=== PATIENT | female | born 1955 | race Hispanic/Latino ===

== ENCOUNTER 2018-11-19 08:56 | Day surgery (SDC) | payer OTHER ==
--- OUTSIDE RECORDS SUMMARY | 2018-11-19 09:20 | XMS REPORT ---
:1955 Author Organization [facility] Address [address] [place] [address] Dr. Moser [address] [place] [id number] Care Team Providers Name Role Phone UNKNOWN, REFFERING Primary Care Provider Unavailable Problems This patient has no known problems. Allergies, Adverse Reactions, Alerts This patient has no known allergies or adverse reactions. Medications This patient has no known medications. Encounters Start End Encounter Admission Attending Care Care Encounter Date/Time Date/Time Type Type Clinicians Facility Department ID 2017-04-06 2017-04-06 Outpatient C [facility] MED [id number] 11:22:00 11:22:00
[2018-11-19] MEDS: PHENYLEPHRINE 10% OPTH 5ML ONE ×3 (09:23→09:33)
[2018-11-19] MEDS: CYCLOPENTOLATE 1% OPTH 2 ML ONE ×3 (09:23→09:33)
[2018-11-19] MEDS ORDERED: LIDOCAINE 2% MPF 5 ML VIAL ONE (09:23)
[2018-11-19] MEDS ORDERED: BUPIVACAINE 0.25% PF 10 ML VIAL ONE (09:23)
[2018-11-19] MEDS ORDERED: LIDOCAINE HCL/PF 3.5% OPTH GEL ONE ×2 (09:23→09:31)
[2018-11-19] MEDS ORDERED: NA CHLORIDE 0.9% 500 ML ONE (09:23)
[2018-11-19] MEDS ORDERED: TETRACAINE HCL 0.5% 2ML OPTH ONE (09:23)
[2018-11-19] MEDS ORDERED: EPINEPHRINE/PF 1 MG/ML AMP ONE (09:25)
[2018-11-19] MEDS ORDERED: NS 0.9% VIAL 10 ML ONE (09:25)
[2018-11-19] MEDS ORDERED: BALANCED SALT IRRIG PLAIN 500 ML BTL IRR ONE (09:25)
[2018-11-19] MEDS ORDERED: LIDOCAINE 1% MPF 2 ML AMPULE ONE (09:26)
[2018-11-19] MEDS ORDERED: MOXIFLOXACIN HCL 10 DROPS/ML **OR USE OPTH ONE (09:26)
[2018-11-19] MEDS ORDERED: DUOVISC 1 KIT OPTH ONE (09:26)
[2018-11-19] MEDS ORDERED: MIDAZOLAM HCL 2 MG/2 ML INJ ONE (10:43)
[2018-11-19] MEDS ORDERED: FENTANYL CITR 100 MCG/2 ML ONE (10:43)
--- NOTE | 2018-11-19 11:27 | P.BOP ---
Preoperative diagnosis: Nuclear sclerotic cataract OS Postoperative diagnosis: Same Primary procedure: Phacoemulsification with IOL OS Estimated blood loss: None Anesthesia: Local (Topical with anesthesia for cataract surgery) Complications: None Implants: SA60WF +25.5 Transferred to: Other (Day surgery) Condition: Good
--- NOTE | 2018-11-19 20:48 | OP ---
Date of Procedure: 11/19/2018 Surgeon: Joanna Groves MD Anesthesiologist: Erinn Goss CRNA, and Qasim Orourke M.D. Preoperative Diagnosis: Nuclear sclerotic cataract, OS (left eye). Operation Performed: Phacoemulsification with intraocular lens implant, left eye. Anesthesia: Per cataract surgery. Complications: None. Description Of Procedure: In the operating room the patient was prepped and draped in the usual ster ile fashion for ophthalmic surgery. A lid speculum was placed in the left eye. Two paracentesis sit es were made superiorly and inferiorly in the limbal cornea. Viscoat was placed in the anterior chaka faisal and a crescent blade was used to make a corneal groove and tunnel, and a keratome was used to ent er the anterior chamber. Provisc was placed in the anterior chamber and a 360 degree capsulotomy was performed with a cystitome. The lens was hydrodissected with BSS and rotated freely. The lens was removed with a stop and chop technique. A 10.86 phaco CDE was used to remove the lens. Residual cor daendre was removed with the irrigation and aspiration. Provisc was placed in the capsular bag. A SA60W F +25.5 lens was placed in the capsular bag without complications. Irrigation and aspiration was use d to remove residual viscoelastic. The paracentesis sites were hydrated with BSS. The wound and par acentesis sites were inspected and found to be watertight. Vigamox 0.07 cc was placed intracamerally at the end of the procedure. The eye was irrigated with balanced salt solution. The eye was patche d with a soft cotton patch and Armstrong metal shield. The patient was returned to day surgery in good condition. Comments: Akten was placed in the eye in Day Surgery and irrigated out of the eye with BSS in the OR . Preservative-free 1% lidocaine was placed in the anterior chamber prior to Viscoat. Discharge Instructions: Ms. Murphy is discharged to home in good condition and is to follow up with Dr. Groves in the morning. JONAS/GISELLE Voice ID: [id number] Report ID: [id number]
== END 2018-11-19 11:50 | disposition home or self-care (01) ==
LOC: OR 08:56
PROVIDERS: ATTEND Ophthalmology Retina Specialist
PROC: 08RK3JZ Replacement of Left Lens with Synthetic Substitute, Percutaneous Approach (ICD-10-PCS; principal; 2018-11-19 10:00)
DX: H25.12 Age-related nuclear cataract, left eye (principal)
CPT/HCPCS: J0171; J2001; J2250; J3010

== ENCOUNTER 2019-01-28 09:45 | Day surgery (SDC) | payer OTHER ==
--- OUTSIDE RECORDS SUMMARY | 2019-01-28 09:48 | XMS REPORT ---
:1955 Author Organization [facility] Address [address] [place] [address] Dr. Moser [address] [place] [id number] Care Team Providers Name Role Phone UNKNOWN, REFFERING Primary Care Provider Unavailable Problems This patient has no known problems. Allergies, Adverse Reactions, Alerts This patient has no known allergies or adverse reactions. Medications This patient has no known medications. Encounters Start End Encounter Admission Attending Care Care Encounter Date/Time Date/Time Type Type Clinicians Facility Department ID 2017-04-06 2017-04-06 Outpatient C [facility] MED [id number] 11:22:00 11:22:00
[2019-01-28] MEDS: CYCLOPENTOLATE 1% OPTH 2 ML ONE ×3 (10:15→10:25)
[2019-01-28] MEDS: PHENYLEPHRINE 10% OPTH 5ML ONE ×3 (10:15→10:25)
[2019-01-28] MEDS ORDERED: BUPIVACAINE 0.25% PF 10 ML VIAL ONE (10:16)
[2019-01-28] MEDS ORDERED: LIDOCAINE HCL/PF 3.5% OPTH GEL ONE (10:16)
[2019-01-28] MEDS ORDERED: TETRACAINE HCL 0.5% 4ML OPTH ONE (10:16)
[2019-01-28] MEDS ORDERED: LIDOCAINE 2% MPF 5 ML VIAL ONE (10:16)
[2019-01-28] MEDS ORDERED: NA CHLORIDE 0.9% 500 ML ONE (10:16)
[2019-01-28] MEDS ORDERED: EPINEPHRINE/PF 1 MG/ML AMP ONE (10:45)
[2019-01-28] MEDS ORDERED: NS 0.9% VIAL 10 ML ONE (10:45)
[2019-01-28] MEDS ORDERED: LIDOCAINE 1% MPF 2 ML AMPULE ONE (10:45)
[2019-01-28] MEDS ORDERED: DUOVISC 1 KIT OPTH ONE (10:45)
[2019-01-28] MEDS ORDERED: BALANCED SALT IRRIG PLAIN 500 ML BTL IRR ONE (10:45)
[2019-01-28] MEDS ORDERED: MIDAZOLAM HCL 2 MG/2 ML INJ ONE (11:00)
[2019-01-28] MEDS ORDERED: FENTANYL CITR 100 MCG/2 ML ONE (11:00)
[2019-01-28] MEDS: MOXIFLOXACIN HCL 10 DROPS/ML **OR USE OPTH ONE ×2 (11:39→11:51)
--- NOTE | 2019-01-28 11:58 | P.BOP ---
Preoperative diagnosis: Nuclear sclerotic cataract OD Postoperative diagnosis: Same Primary procedure: Phacoemulsification with IOL OD Estimated blood loss: None Anesthesia: Local (Topical with anesthesia for cataract surgery) Complications: None Implants: SA60WF +26.5 Transferred to: Other (Day surgery) Condition: Good
--- NOTE | 2019-01-28 23:16 | OP ---
Date of Procedure: 01/28/2019 Surgeon: Joanna Groves MD Anesthesiologist: 1. Trudy Dunn CRNA. 2. Chel Pollock CRNA. 3. Antony Taylor Md. Preoperative Diagnosis: Nuclear sclerotic cataract, OD (right eye). Operation Performed: Phacoemulsification with intraocular lens implant, right eye. Anesthesia: Per cataract surgery. Complications: None. Description Of Procedure: In the operating room the patient was prepped and draped in the usual ster ile fashion for ophthalmic surgery. A lid speculum was placed in the right eye. Two paracentesis si ulysses were made superiorly and inferiorly in the limbal cornea. Viscoat was placed in the anterior jocelyn mber and a crescent blade was used to make a corneal groove and tunnel, and a keratome was used to en ter the anterior chamber. Provisc was placed in the anterior chamber and a 360 degree capsulotomy wa s performed with a cystitome. The lens was hydrodissected with BSS and rotated freely. The lens was removed with a stop and chop technique. 7.35 phaco CDE was used to remove the lens. Residual gerard x was removed with the irrigation and aspiration. Provisc was placed in the capsular bag. A SA60WF + 26.5 lens was placed in the capsular bag without complications. Irrigation and aspiration was used to remove residual viscoelastic. The paracentesis sites were hydrated with BSS. The wound and para centesis sites were inspected and found to be watertight. Vigamox 0.07 cc was placed intracamerally at the end of the procedure. The eye was irrigated with balanced salt solution. The eye was patched with a soft cotton patch and Armstrong metal shield. The patient was returned to day surgery in good condition. Comments: Akten was placed in the eye in Day Surgery and irrigated out of the eye with BSS in the OR . Preservative-free 1% lidocaine was placed in the anterior chamber prior to Viscoat. Discharge Instructions: Ms. Murphy is discharged to home in good condition and is to follow up with Dr. Groves in the morning. JONAS/MODL Voice ID: [id number] Report ID: [id number]
== END 2019-01-28 12:23 | disposition home or self-care (01) ==
LOC: OR 09:45
PROVIDERS: ATTEND Ophthalmology Retina Specialist
PROC: 08RJ3JZ Replacement of Right Lens with Synthetic Substitute, Percutaneous Approach (ICD-10-PCS; principal; 2019-01-28 10:45)
DX: H25.11 Age-related nuclear cataract, right eye (principal); E07.9 Disorder of thyroid, unspecified; Z79.899 Other long term (current) drug therapy
CPT/HCPCS: J0171; J2001; J2250; J3010